=== PATIENT | male | born 1930 | race Caucasian/White ===

== ENCOUNTER → 2017-09-13 | Outpatient (CLI) | payer OTHER | END | disposition home or self-care (01) | LOC: PCVCCLINIC 09:53 | DX: I10 Essential (primary) hypertension (principal); I35.0 Nonrheumatic aortic (valve) stenosis; E78.5 Hyperlipidemia, unspecified; I48.92 Unspecified atrial flutter; Z87.891 Personal history of nicotine dependence; Z79.899 Other long term (current) drug therapy; Z79.82 Long term (current) use of aspirin | CPT/HCPCS: 80061; 93005; G0463 ==

== ENCOUNTER → 2018-03-28 | Outpatient (CLI) | payer OTHER ==
--- NOTE | 2018-03-28 09:51 | PCVCIMAG ---
APPROVED REPORT Study performed: 03/28/2018 08:39:13 EXAM: Comprehensive 2D, Doppler, and color-flow Echocardiogram Patient Location: Echo lab Room #: 2Status: routine BSA: 2.02 HR: 55 bpmBP: 164/56 mmHg Rhythm: NSR Other Information Study Quality: Good Risk Factors: Cardiac Risk Factors: HTN Indications Aortic Valve Disease Dizziness and Vertigo Hypertension/HDD HX A Flutter with pericardial effeusion 2D Dimensions IVSd: 11.31 (7-11mm)LVOT Diam: 22.45 (18-24mm) LVDd: 59.73 mm PWd: 10.13 (7-11mm)Ascending Ao: 32.61 (22-36mm) LVDs: 29.05 (25-40mm) Left Atrium: 45.58 (27-40mm) Aortic Root: 29.68 mm LV Single Plane 4CH: 58.67 % LV Single Plane 2CH: 63.52 % Biplane EF: 60.5 % Volumes Left Atrial Volume (Systole) Single Plane 4CH: 108.63 mLSingle Plane 2CH: 119.98 mL Biplane LA Volume: 116.00 mLLA ESV Index: 58.00 mL/m2 Aortic Valve AoV Peak Kayode.: 2.81 m/s AO Peak Gr.: 32.40 mmHgLVOT Max P.47 mmHg AO Mean Gr.: 18.82 mmHgLVOT Mean P.58 mmHg AO V2 Mean: 2.09 m/sLVOT Max V: 0.89 m/s AO V2 VTI: 67.86 cmLVOT Mean V: 0.59 m/s TIGIST (VTI): 1.40 [id number] V1 VTI: 24.04 cm TIGIST Vmax: 1.25 cm2 AI Vmax: 4.02 m/sSV (LVOT): 95.15 mL AI Frio: 1.65 m/s2 AI PHT: 709.46 ms Mitral Valve E/A Ratio: 0.9 MV Decel. Time: 332.07 ms MV E Max Kayode.: 0.60 m/s MV A Kayode.: 0.68 m/s IVRT: 76.12 ms TDI E/Lateral E': 8.57E/Medial E': 10.00 Medial E' Kayode.: 0.06 m/s Lateral E' Kayode.: 0.07 m/s Pulmonary Valve PV Peak Kayode.: 1.00 m/sPV Peak Gr.: 4.03 mmHg Pulmonary Vein P Vein S: 0.81 m/sP Vein A: 0.30 m/s P Vein D: 0.56 m/sP Vein A Dur.: 114.2 msec P Vein S/D Ratio: 1.45 Tricuspid Valve TR Peak Kayode.: 2.88 m/s TR Peak Gr.: 33.19 mmHg TV Vmax: 0.84 m/sPA Pressure: 40.00 mmHg Left Ventricle Left ventricle is mildly dilated. There is normal LV segmental wall motion. Mild concentric left ventricular hypertrophy. Left ventricular systolic function is normal. The left ventricular ejection fraction is within the normal range. LVEF is 60-65%. Mild diastolic dysfunction is present (impaired relaxation pattern). Right Ventricle The right ventricle is normal size. The right ventricular systolic function is normal. Atria Left atrium is severely dilated. Right atrium is moderately dilated. Aortic Valve Aortic valve is trileaflet, moderately calcified Mild aortic regurgitation. Calculated aortic valve area is 1.2 cm2 with maximum pressure gradient of 31 mmHg and mean pressure gradient of 19 mmHg. Mitral Valve The mitral valve is normal in structure. Mild mitral regurgitation. No evidence of mitral valve stenosis. Tricuspid Valve The tricuspid valve is normal in structure. Moderate to severe tricuspid regurgitation with a PA pressure of 40 mmHg. Pulmonic Valve The pulmonary valve is normal in structure. There is no pulmonic valvular regurgitation. Great Vessels The aortic root is normal in size. The ascending aorta is normal in size. Aortic arch is normal in caliber. IVC is normal in size and collapses >50% with inspiration. Pericardium There is no pericardial effusion. There is no pleural effusion. <Conclusion> Left ventricular systolic function is normal. There is normal LV segmental wall motion. LVEF is 60-65%. Both atria are dilated dilated. Aortic valve is trileaflet, moderately calcified, mildly stenotic. Calculated aortic valve area is 1.2 cm2 with maximum pressure gradient of 31 mmHg and mean pressure gradient of 19 mmHg. Mild aortic regurgitation. The mitral valve is normal in structure. Mild mitral regurgitation. Moderate tricuspid regurgitation with a pulmonary artery pressure of 40 mmHg. There is no pericardial effusion.
== END | disposition home or self-care (01) ==
LOC: PCVCIMAG 13:30
PROVIDERS: ATTEND Internal Medicine
DX: I08.3 Combined rheumatic disorders of mitral, aortic and tricuspid valves (principal); I10 Essential (primary) hypertension
CPT/HCPCS: 93306

== ENCOUNTER → 2018-09-26 | Outpatient (CLI) | payer OTHER | END | disposition home or self-care (01) | LOC: PCVCCLINIC 12:54 | PROVIDERS: ATTEND Internal Medicine | DX: I35.0 Nonrheumatic aortic (valve) stenosis (principal); I10 Essential (primary) hypertension; E78.5 Hyperlipidemia, unspecified; I48.92 Unspecified atrial flutter; I31.3 Pericardial effusion (noninflammatory); Z88.1 Allergy status to other antibiotic agents; Z88.2 Allergy status to sulfonamides | CPT/HCPCS: 36415; 80061; 93005; G0463 ==